=== PATIENT | female | born 1980 | race Caucasian/White ===

== ENCOUNTER 2018-03-10 10:05 | Emergency (ER) | payer OTHER, MEDICAID ==
[~2018-03-10] VITALS: Ht 162.6 cm; Wt 76.2 kg
[~2018-03-10 10:05] MED LIST: AMOXICILLIN 50500 M1 PO; AUGMENTIN 875-1 EACH PO; CEPHALEXIN 500500 M3 PO; CIPRO500 MG PO; FLAGYL500 MG PO; HYDROCODON-ACE1 EAC7 PO; HYDROCODONE-AP1 EAC6 PO; IBUPROFEN 800800 M1 PO; IBUPROFEN 800800 MG PO; MACROBID 100 M100 M2 PO; NAPROSYN500 MG PO; NOHOMEMEDICATIONS; NORCO 5-325 TA1 EACH PO
[2018-03-10 10:26] LABS: ABSOLUTE BASOPHILS 0.1 thou/uL (0.0-0.2); ABSOLUTE EOSINOPHILS 0.7 thou/uL (0.0-0.7); ABSOLUTE LYMPHOCYTES 2.8 thou/uL (0.8-5.3); ABSOLUTE MONOCYTES 0.9 thou/uL (0.0-1.2); ABSOLUTE NEUTROPHILS 4.9 thou/uL (1.6-8.1); BASOPHILS 0.7 %; EOSINOPHILS 7.7 %; HEMATOCRIT 40.2 % (37.0-47.0); HEMOGLOBIN 13.4 gm/dL (12.0-15.0); LYMPHOCYTES 29.5 %; MCH 32.1 pg (26.0-34.0); MCHC 33.4 g/dL (28.0-37.0); MCV 96.1 fL (80.0-100.0); MONOCYTES 10.1 %; MPV 8.7 fl. (7.2-11.1); NUCLEATED RBCS 0 /100WBC; PLATELET COUNT* 324 thou/uL (150-400); RBC 4.18 mil/uL (4.20-5.00); RDW-CV 13.2 % (10.5-14.5); WBC 9.4 thou/uL (4.0-11.0)
[2018-03-10 10:34] LABS: INR 1.1; PROTIME 10.5 Seconds (9.20-11.50)
[2018-03-10 10:37] LABS: ANION GAP 7 mmol/L (7-16); BUN 12 mg/dL (7-18); CALCIUM 8.7 mg/dL (8.5-10.1); CHLORIDE 105 mmol/L (98-107); CO2 26 mmol/L (21-32); CREATININE 0.7 mg/dL (0.6-1.3); GLUCOSE 96 mg/dL (70-99); POTASSIUM 3.9 mmol/L (3.5-5.1); SODIUM 138 mmol/L (136-145)
[2018-03-10 10:50] LABS: ALBUMIN 3.8 g/dL (3.4-5.0); ALKALINE PHOSPHATASE 40 U/L (46-116); LIPASE 124 U/L (73-393); NT-PRO BRAIN NAT PEPTIDE 36 pg/mL (<300); SGOT 11 U/L (15-37); SGPT 14 U/L (30-65); TOTAL BILIRUBIN 0.4 mg/dL (<0.1-1.0); TOTAL PROTEIN 7.7 g/dL (6.4-8.2); TROPONIN-I LEVEL <0.06 ng/mL (<0.06)
[2018-03-10 11:45] LABS: URINE BILIRUBIN NEGATIVE (Negative); URINE BLOOD TRACE (Negative); URINE CLARITY CLEAR; URINE COLOR YELLOW; URINE GLUCOSE-RANDOM NEGATIVE (Negative); URINE KETONES NEGATIVE (Negative); URINE LEUKOCYTES-REFLEX NEGATIVE (Negative); URINE NITRITE-REFLEX NEGATIVE (Negative); URINE PROTEIN NEGATIVE (Negative); URINE SPECIFIC GRAVITY >= 1.030 (1.005-1.030); URINE UROBILINOGEN 0.2 E.U./dl (0.2-1.0)
[2018-03-10] MEDS ORDERED: HYDROCODON-ACE1 EAC7 PO (11:59)
[2018-03-10 12:32] VITALS: BP 96/55
--- NOTE | 2018-03-10 15:53 | EKG ---
[place] [address] ELECTROCARDIOGRAM REPORT Name: MULUGETA VASQUEZ [id number] Admission: 03/10/18 Attend Phys: Discharge: 03/10/18 Date of : 80 Report #: [id number] THIS REPORT FOR: //name// [facility] ED Test Date: 2018-03-10 Test Time: 10:09:44 Pat Name: MULUGETA VASQUEZ Department: Room: Gender: F [employer] Teacher: ARLEEN : 1980 Requested By: Ronaldo Davis Order Number: [id number] MD: Sloan Henning Measurements Intervals [place] Rate: 74 P: 58 ND: 138 QRS: 42 QRSD: 83 T: 25 QT: 356 QTc: 395 Interpretive Statements Sinus rhythm Atrial premature complex No previous ECG available for comparison Electronically Signed On 03-10-2018 15:53:14 CDT by Sloan Henning [email or web address] <ELECTRONICALLY SIGNED> By: Sloan Henning MD, [facility] 03/10/18 1553 [id number] Sloan Henning MD, FACC /EPI
== END 2018-03-10 12:35 | disposition home or self-care (01) ==
LOC: M.ERS 10:05
PROVIDERS: Emergency Medicine
DX: M54.9 Dorsalgia, unspecified (principal); R10.13 Epigastric pain; F17.210 Nicotine dependence, cigarettes, uncomplicated

== ENCOUNTER 2018-04-11 23:59 | Emergency (ER) | payer OTHER, MEDICAID ==
[~2018-04-11] VITALS: Ht 165.1 cm; Wt 72.6 kg
[2018-04-12 00:08] VITALS: BP 116/58
[2018-04-12] MEDS ORDERED: NAPROSYN500 MG PO (00:16)
== END 2018-04-12 00:28 | disposition home or self-care (01) ==
LOC: M.ERS 23:59
DX: M54.5 Low back pain (principal); F17.210 Nicotine dependence, cigarettes, uncomplicated

== ENCOUNTER 2018-06-09 13:51 | Emergency (ER) | payer OTHER, MEDICAID ==
[~2018-06-09] VITALS: Ht 165.1 cm; Wt 69.5 kg
[2018-06-09] MEDS ORDERED: CIPROFLOXIN HC2.5 M1 OPHTHALMIC (14:50)
[2018-06-09 14:58] VITALS: BP 133/70
== END 2018-06-09 14:58 | disposition home or self-care (01) ==
LOC: M.ERS 13:51
DX: S05.01XA Injury of conjunctiva and corneal abrasion without foreign body, right eye, initial encounter (principal); J02.9 Acute pharyngitis, unspecified; F17.210 Nicotine dependence, cigarettes, uncomplicated; Z98.890 Other specified postprocedural states; X58.XXXA Exposure to other specified factors, initial encounter; Y93.89 Activity, other specified; Y92.89 Other specified places as the place of occurrence of the external cause; Y99.8 Other external cause status

== ENCOUNTER 2018-08-16 01:09 | Emergency (ER) | payer OTHER, MEDICAID ==
[~2018-08-16] VITALS: Ht 165.1 cm; Wt 68.0 kg
[~2018-08-16 01:09] MED LIST changes: +CIPROFLOXIN HC2.5 M1 OPHTHALMIC
[2018-08-16 01:13] VITALS: BP 130/75
== END 2018-08-16 01:32 | disposition home or self-care (01) ==
LOC: M.ERS 01:09
DX: J02.9 Acute pharyngitis, unspecified (principal); F17.210 Nicotine dependence, cigarettes, uncomplicated; Z98.890 Other specified postprocedural states

== ENCOUNTER 2018-09-30 20:11 | Emergency (ER) | payer OTHER ==
[~2018-09-30] VITALS: Ht 165.1 cm; Wt 63.5 kg
[2018-09-30] MEDS ORDERED: TESSALON PERLE100 MG PO (21:20)
[2018-09-30] MEDS ORDERED: PROAIR HFA8.5 GM INH (21:20)
[2018-09-30] MEDS ORDERED: PREDNISONE 20 M20 M1 PO (21:20)
[2018-09-30] MEDS ORDERED: ZPAK PO (21:33)
[2018-09-30 21:52] VITALS: BP 133/85
== END 2018-09-30 21:52 | disposition home or self-care (01) ==
LOC: M.ERS 20:11
DX: J20.9 Acute bronchitis, unspecified (principal)